=== PATIENT | male | born 1945 | race Caucasian/White ===

== ENCOUNTER 2017-06-04 20:31 | Emergency (ER) | payer MEDICARE, OTHER ==
[2017-06-04] MEDS ORDERED: Sodium Chloride 0.9% 500 ML IV ONE (21:11)
[2017-06-04] MEDS ORDERED: Sodium Chloride 0.9% 10 ML Syringe FLUSH PRN (21:11)
[2017-06-04] MEDS ORDERED: HYDROmorphone 0.5 MG/0.5 ML Syringe IVPUSH ONE (21:28)
--- NOTE | 2017-06-04 22:11 | EDM.PDOC ---
ED HPI GENERAL MEDICAL PROBLEM - General Chief Complaint: Genitourinary Problem Stated Complaint: BLOOD IN URINE Time Seen by Provider: 06/04/17 20:49 Source of Information: Reports: Patient, RN Notes Reviewed - History of Present Illness INITIAL COMMENTS - FREE TEXT/NARRATIVE: 71-year-old male comes in with fever chills hematuria. This All started just a few hours ago. He does have voiding dysuria with hematuria but had not been having prior dysuria or other voiding symptomatology. He does have history of hypertension, chronic atrial fib and is on xarelto that. No chest pain or difficulty breathing. No abdominal pain nausea or vomiting. No unusual back discomfort. He has never had difficulty of this nature before. - Related Data Allergies Allergy/AdvReac Type Severity Reaction Status Date / Time No Known Allergies Allergy Verified 06/04/17 20:43 Home Meds: Home Meds Diltiazem [Diltiazem XR] 180 mg PO DAILY 06/04/17 [History] Fenofibrate Nanocrystallized [Fenofibrate] 145 mg PO DAILY 06/04/17 [History] LORazepam 0.5 mg PO Q8H PRN 06/04/17 [History] Levofloxacin [Levaquin] 500 mg PO DAILY #7 tab 06/04/17 [Rx] Losartan [Cozaar] 100 mg PO DAILY 06/04/17 [History] Metoprolol Succinate 75 mg PO BID 06/04/17 [History] Multivitamin [Multivitamins] 1 each PO DAILY 06/04/17 [History] Potassium Chloride 10 meq PO ASDIRECTED 06/04/17 [History] Rivaroxaban [Xarelto] 20 mg PO DAILY 06/04/17 [History] Sertraline [Zoloft] 50 mg PO DAILY 06/04/17 [History] Triamterene/Hydrochlorothiazid [Triamterene-HCTZ 37.5-25 MG] 1 each PO DAILY [History] Ubidecarenone [Coq-10] 100 mg PO BID 06/04/17 [History] atorvaSTATin [Lipitor] 20 mg PO BEDTIME 06/04/17 [History] Past Medical History HEENT History: Reports: Impaired Vision Social & Family History - Tobacco Use Smoking Status *Q: Never Smoker Second Hand Smoke Exposure: No - Caffeine Use Caffeine Use: Reports: Coffee - Recreational Drug Use Recreational Drug Use: No ED ROS GENERAL - Review of Systems Review Of Systems: See Below Constitutional: Reports: Fever, Chills (Low-grade) HEENT: Denies: Sinus Problem, Throat Pain Respiratory: Reports: Shortness of Breath (Mild chronic). Denies: Cough Cardiovascular: Denies: Chest Pain GI/Abdominal: Denies: Abdominal Pain, Nausea, Vomiting : Reports: Dysuria, Hematuria Musculoskeletal: Denies: Back Pain, Leg Pain Skin: Denies: Bruising, Rash Neurological: Reports: No Symptoms ED EXAM, RENAL/ - Physical Exam Exam: See Below General Appearance: Alert, Anxious (Mild), Mild Distress Eye Exam: Bilateral Eye: PERRL Throat/Mouth: Normal Inspection, Normal Oropharynx Head: Atraumatic. No: Facial Swelling Neck: Supple, Full Range of Motion Respiratory/Chest: No Respiratory Distress, Lungs Clear, Normal Breath Sounds Cardiovascular: Irregularly Irregular GI/Abdominal: No: Non-Tender, Guarding, Rebound (Male) Exam: Normal Inspection Extremities: Normal Inspection, Pedal Edema (Mild bilateral). No: Leg Pain Neurological: Alert, Oriented, No Motor/Sensory Deficits Skin Exam: Warm, Dry, Normal Color Course - Vital Signs Last Recorded V/S: Last Vital Signs Temp 99.4 F 06/04/17 20:37 Pulse 97 06/04/17 20:37 Resp 20 06/04/17 20:37 BP 164/82 H 06/04/17 20:37 Pulse Ox 94 L 06/04/17 20:37 - Orders/Labs/Meds Orders: Active Orders 24 hr Category Date Time Status Peripheral IV Care [RC] . DIRECTED Care 06/04/17 21:12 Active CULTURE URINE [RM] Stat Lab 06/04/17 20:55 Received Sodium Chloride 0.9% [Saline Flush] Med 06/04/17 21:11 Active 10 ml FLUSH ASDIRECTED PRN Peripheral IV Insertion Adult [OM.PC] Stat Oth 06/04/17 21:11 Ordered Medication Orders Sodium Chloride (Saline Flush) 10 ml FLUSH ASDIRECTED PRN PRN Reason: Keep Vein Open Last Admin: 06/04/17 21:35 Dose: 10 ml Labs: Laboratory Tests 06/04/17 06/04/17 06/04/17 Range/Units 20:55 21:25 21:25 WBC 13.62 H (4.23-9.07) K/mm3 RBC 4.64 (4.63-6.08) M/mm3 Hgb 13.9 (13.7-17.5) gm/L Hct 40.9 (40.1-51.0) % MCV 88.1 (79.0-92.2) fl MCH 30.0 (25.7-32.2) pg MCHC 34.0 (32.2-35.5) g/dl RDW Std Deviation 44.8 H (35.1-43.9) fL Plt Count 179 (163-337) K/mm3 MPV 12.0 (9.4-12.3) fl Neut % (Auto) 84.6 H (34.0-67.9) % Lymph % (Auto) 6.2 L (21.8-53.1) % [place] % (Auto) 8.8 (5.3-12.2) % Eos % (Auto) 0.1 L (0.8-7.0) Baso % (Auto) 0.1 (0.1-1.2) % Neut # (Auto) 11.53 H (1.78-5.38) K/mm3 Lymph # (Auto) 0.84 L (1.32-3.57) K/mm3 [place] # (Auto) 1.20 H (0.30-0.82) K/mm3 Eos # (Auto) 0.01 L (0.04-0.54) K/mm3 Baso # (Auto) 0.01 (0.01-0.08) K/mm3 Manual Slide Review Normal smear Sodium 140 (136-145) mEq/L Potassium 2.8 L (3.5-5.1) mEq/L Chloride 102 (98-107) mEq/L Carbon Dioxide 25 (21-32) mEq/L Anion Gap 15.8 H (5-15) BUN 14 (7-18) mg/dL Creatinine 1.2 (0.7-1.3) mg/dL Est Cr Clr Drug Dosing 60.18 mL/min Estimated GFR (MDRD) 59 (>60) mL/min BUN/Creatinine Ratio 11.7 L (14-18) Glucose 151 H (83-115) mg/dL Calcium 9.4 (8.5-10.1) mg/dL Total Bilirubin 0.4 (0.2-1.0) mg/dL AST 32 (15-37) U/L ALT 32 (16-63) U/L Alkaline Phosphatase 62 (46-116) U/L Total Protein 7.2 (6.4-8.2) g/dl Albumin 3.8 (3.4-5.0) g/dl Globulin 3.4 gm/dL Albumin/Globulin Ratio 1.1 (1-2) Urine Color Red H (Yellow) Urine Appearance Slt cloudy H (Clear) Urine pH 7.0 (5.0-8.0) Ur Specific [place] 1.020 (1.005-1.030) Urine Protein 3+ H (Negative) Urine Glucose (UA) Negative (Negative) Urine Ketones 1+ H (Negative) Urine Occult Blood 3+ H (Negative) Urine Nitrite Positive H (Negative) Urine Bilirubin 3+ H (Negative) Urine Urobilinogen 2.0 H (0.2-1.0) Ur Leukocyte Esterase 3+ H (Negative) Urine RBC 0-5 (0-5) /hpf Urine WBC 10-20 H (0-5) /hpf Ur Epithelial Cells 0-5 (0-5) /hpf Amorphous Sediment Few H (NOT SEEN) /hpf Urine Bacteria Many H (FEW) /hpf Urine Mucus Few (FEW) /hpf Meds: Medications Generic Name Dose Route Start Last Admin Trade Name Dona PRN Reason Stop Dose Admin Sodium Chloride 10 ml 06/04/17 21:11 06/04/17 21:35 Saline Flush FLUSH 10 ml ASDIRECTED PRN Administration Keep Vein Open Discontinued Medications Generic Name Dose Route Start Last Admin Trade Name Dona PRN Reason Stop Dose Admin Hydromorphone HCl 0.5 mg 06/04/17 21:28 06/04/17 21:34 Dilaudid IVPUSH 06/04/17 21:29 0.5 mg ONETIME ONE Administration Sodium Chloride 500 mls @ 999 mls/hr 06/04/17 21:11 06/04/17 21:33 Normal Saline IV 06/04/17 21:41 999 mls/hr .BOLUS ONE Administration Ceftriaxone Sodium 1 gm/ 100 mls @ 200 mls/hr 06/04/17 22:22 06/04/17 22:34 Sodium Chloride IV 06/04/17 22:51 200 mls/hr ONETIME ONE Administration Sodium Chloride 400 mls @ 999 mls/hr 06/04/17 22:31 Normal Saline IV 06/04/17 22:55 .BOLUS ONE Levofloxacin 500 mg 06/04/17 22:22 06/04/17 22:35 Levaquin PO 06/04/17 22:23 500 mg ONETIME ONE Administration Potassium Chloride 40 meq 06/04/17 22:21 06/04/17 22:35 Klor-Con M20 PO 06/04/17 22:22 40 meq ONETIME ONE Administration - Re-Assessments/Exams Free Text/Narrative Re-Assessment/Exam: 06/04/17 23:05 UA shows strong evidence for UTI, nitrite positive, increased white cells and bacteria present. Potassium low at 2.8. He is on Potassium supplement. He states he has been taking his meds as prescribed. Have ordered urine culture. Have given Rocephin 1 g IV and Levaquin 500 mg by mouth. We'll continue him on Levaquin 500 milligrams daily. Discharge instructions as documented. Departure - Departure Time of Disposition: 23:07 Disposition: Home, Self-Care 01 Condition: Fair Clinical Impression: UTI, Urinary tract infectious disease, Hematuria due to cystitis, Hypokalemia - Discharge Information Prescriptions: Levofloxacin [Levaquin] 500 mg PO DAILY #7 tab Instructions: Urinary Tract Infection, Adult, [id number], Hematuria, Adult Referrals: Ric Fields MD [Primary Care Provider] - Forms: ED Department Discharge Additional Instructions: Drink plenty of water to maintain hydration, do not take the xarelto tomorrow, than resume as previously prescribed. You've been given Rocephin antibiotic 1 g IV while here in the ED and also Levaquin 500 mg orally. Continue Levaquin 500 mg orally for the next 7 days. During next dose of Levaquin should be tomorrow afternoon. Your potassium was very low at 2.8 this evening. Increase your potassium supplement to 1 tablet twice daily. Bananas are good source of potassium. Also other fruit and vegetables. Potatoes are good source of potassium but too many carbohydrates in general are unhealthy for you. [place] fries in particular are very unhealthy and also giving you way too many calories. Be very careful of other flour and sugar foods. The blood in the urine you have this evening should gradually clear over the next 1-2 days. Try follow-up with Dr. Fields or Saturday if at all possible. Call tomorrow morning for appointment. A urine culture has been done. Culture results should be available within 24-48 hours. Return to ED as needed if symptoms worsening in any way. - My Orders Last 24 Hours: My Active Orders 06/04/17 20:55 CULTURE URINE [RM] Stat 06/04/17 21:11 Sodium Chloride 0.9% [Saline Flush] 10 ml FLUSH ASDIRECTED PRN Peripheral IV Insertion Adult [OM.PC] Stat 06/04/17 21:12 Peripheral IV Care [RC] . DIRECTED - Assessment/Plan Last 24 Hours: My Active Orders 06/04/17 20:55 CULTURE URINE [RM] Stat 06/04/17 21:11 Sodium Chloride 0.9% [Saline Flush] 10 ml FLUSH ASDIRECTED PRN Peripheral IV Insertion Adult [OM.PC] Stat 06/04/17 21:12 Peripheral IV Care [RC] . DIRECTED
[2017-06-04] MEDS ORDERED: Potassium Chloride 20 MEQ Tab.ER PO ONE (22:21)
[2017-06-04] MEDS ORDERED: cefTRIAXone 1 GM in Sodium Chloride 0.9% 100 ML IV ONE (22:22)
[2017-06-04] MEDS ORDERED: Levofloxacin 250 MG Tab PO ONE (22:22)
[2017-06-04] MEDS ORDERED: Sodium Chloride 0.9% 400 ML IV ONE (22:31)
== END 2017-06-04 23:40 | disposition home or self-care (01) ==
LOC: JD.ED 20:31
DX: N30.01 Acute cystitis with hematuria (principal); E87.6 Hypokalemia; I10 Essential (primary) hypertension; I48.2 Chronic atrial fibrillation; Z79.899 Other long term (current) drug therapy; Z79.01 Long term (current) use of anticoagulants
CPT/HCPCS: 36415; 80053; 81001; 85025; 87086; 87088; 87186; 96361; 96365; 96375; 99284; A9270; J0696; J1170; J7030; J7040; J7050; 99283

== ENCOUNTER 2019-08-06 07:53 | Day surgery (SDC) | payer MEDICARE, OTHER ==
--- NOTE | 2019-08-06 08:19 | PCM.PREANE ---
Preanesthetic Assessment - Procedure Proposed Procedure: cataract - Anesthesia/Transfusion/Family Hx Anesthesia History: Prior Anesthesia Without Reaction Family History of Anesthesia Reaction: No Transfusion History: Prior Transfusion Without Reaction () - Review of Systems General: No Symptoms ( ) Pulmonary: No Symptoms ( ) Cardiovascular: No Symptoms, Dyspnea on Exertion, Other (afib- xarelto and high bp) Gastrointestinal: No Symptoms Neurological: No Symptoms Other: Reports: Anxiety - Physical Assessment NPO Status Date: 08/05/19 NPO Status Time: 19:00 Vital Signs: 155/73 81 96% 16 97.3 Height: 5 ft 10 in Weight: 113.398 kg ASA Class: 3 Mental Status: Alert & Oriented x3 Airway Class: Mallampati = 2 Dentition: Reports: Broken Tooth/Teeth, Missing Tooth/Teeth Thyro-Mental Finger Breadths: 3 Mouth Opening Finger Breadths: 3 ROM/Head Extension: Full Lungs: Clear to Auscultation, Normal Respiratory Effort Cardiovascular: Regular Rate, Regular Rhythm - Allergies Allergies/Adverse Reactions: Allergies Allergy/AdvReac Type Severity Reaction Status Date / Time No Known Allergies Allergy Verified 06/04/17 20:43 - Blood Blood Available: No - Anesthesia Plan Beta Jose Eduardo: Metoprolol Med Last Dose Date: 08/06/19 Med Last Dose Time: 06:30 - Acknowledgements Anesthesia Type Planned: MAC Pt an Appropriate Candidate for the Planned Anesthesia: Yes Alternatives and Risks of Anesthesia Discussed w Pt/Guardian: Yes Pt/Guardian Understands and Agrees with Anesthesia Plan: Yes PreAnesthesia Questionnaire HEENT History: Reports: Impaired Vision Cardiovascular History: Reports: High Cholesterol, Hypertension Respiratory History: Reports: None Musculoskeletal History: Reports: Arthritis Psychiatric History: Reports: Anxiety Endocrine/Metabolic History: Reports: Obesity/BMI 30+ Oncologic (Cancer) History: Reports: Other (See Below) (skin) - Past Surgical History Musculoskeletal Surgical History: Reports: Other (See Below) (multiple bone fracture [id number] to accident 1970) - SUBSTANCE USE Smoking Status *Q: Former Smoker Tobacco Use Within Last Twelve Months: No Second Hand Smoke Exposure: No Days Per Week of Alcohol Use: 0 Recreational Drug Use History: No - HOME MEDS Home Medications: Home Meds Diltiazem [Diltiazem XR] 180 mg PO DAILY 06/04/17 [History] Fenofibrate Nanocrystallized [Fenofibrate] 145 mg PO DAILY 06/04/17 [History] LORazepam 0.5 mg PO Q8H PRN 06/04/17 [History] Losartan [Cozaar] 100 mg PO DAILY 06/04/17 [History] Multivitamin [Multivitamins] 1 each PO DAILY 06/04/17 [History] Potassium Chloride 10 meq PO DAILY 06/04/17 [History] Rivaroxaban [Xarelto] 20 mg PO DAILY 06/04/17 [History] Sertraline [Zoloft] 50 mg PO DAILY 06/04/17 [History] Triamterene/Hydrochlorothiazid [Triamterene-HCTZ 37.5-25 MG] 1 each PO DAILY [History] Ubidecarenone [Coq-10] 100 mg PO DAILY 06/04/17 [History] Metoprolol Tartrate [Lopressor] 75 mg PO BID 08/05/19 [History] - CURRENT (IN HOUSE) MEDS Current Meds: Current Medications Brimonidine Tartrate (Alphagan 0.2% Ophth Soln) 0 ml EYELF ASDIRECTED NANCY Stop: 08/06/19 23:00 Cefuroxime Sodium (Zinacef) 0 mg EYELF ASDIRECTED NANCY Stop: 08/06/19 23:00 Lidocaine HCl (Xylocaine-Mpf 1%) 0 ml INJECT ASDIRECTED NANCY Stop: 08/06/19 23:00 Phenylephrine HCl (Chacho-Synephrine 2.5% Ophth Soln) 0 ml EYELF ASDIRECTED NANCY Stop: 08/06/19 23:00 Pilocarpine HCl (Pilocar 4% Ophth Soln) 0 ml EYELF ASDIRECTED NANCY Stop: 08/06/19 23:00 Polymyxin/Trimethoprim Sulfate (Polytrim Ophth Soln) 0 ml EYELF ASDIRECTED NANCY Stop: 08/06/19 23:00 Tetracaine HCl (Tetracaine 0.5% Steri-Unit Shari) 0 ml EYEBOTH ASDIRECTED NANCY Stop: 08/06/19 23:00 Tropicamide (Mydriacyl 1% Ophth Soln) 0 ml EYELF ASDIRECTED NANCY Stop: 08/06/19 23:00
[2019-08-06] MEDS: Polymyxin B/Trimethoprim 10 ML Bottle EYELF SCH ×4 (08:32→10:30)
[2019-08-06] MEDS: Brimonidine 0.2% Ophth Soln 5 ML Bottle EYELF SCH ×4 (08:38→10:30)
[2019-08-06] MEDS: Phenylephrine 2.5% Ophth Soln 2 ML Bot EYELF SCH ×6 (08:42→10:12)
[2019-08-06] MEDS: Tropicamide 1% Ophth Soln 15 ML Bottle EYELF SCH ×4 (08:47→09:36)
[2019-08-06] MEDS: Tetracaine HCl/PF 0.5% 4 ML Bottle EYEBOTH SCH ×3 (10:00→10:18)
[2019-08-06] MEDS: Lidocaine 1% PF 2 ML SDV INJECT SCH ×2 (10:00→10:18)
[2019-08-06] MEDS: Pilocarpine 4% Ophth Soln 15 ML Bot EYELF SCH ×2 (10:01→10:30)
[2019-08-06] MEDS: Cefuroxime 10 MG/ML SYRINGE EYELF SCH ×2 (10:01→10:30)
--- NOTE | 2019-08-06 10:38 | PCM48HPAN ---
Post Anesthesia Note - EVALUATION WITHIN 48HRS OF ANESTHETIC Vital Signs in Normal Range: Yes Patient Participated in Evaluation: Yes Respiratory Function Stable: Yes Airway Patent: Yes Cardiovascular Function Stable: Yes Hydration Status Stable: Yes Pain Control Satisfactory: Yes Nausea and Vomiting Control Satisfactory: Yes Mental Status Recovered: Yes Vital Signs: Last Vital Signs Temp 36.3 C 08/06/19 08:05 Pulse 81 08/06/19 08:05 Resp 16 08/06/19 08:05 BP 155/73 H 08/06/19 08:05 Pulse Ox 96 08/06/19 08:05
== END 2019-08-06 10:50 | disposition home or self-care (01) ==
LOC: JD.SDS 07:53
PROVIDERS: ATTEND Ophthalmology
DX: E11.36 Type 2 diabetes mellitus with diabetic cataract (principal); H25.813 Combined forms of age-related cataract, bilateral; H16.223 Keratoconjunctivitis sicca, not specified as Sjogren's, bilateral; F41.9 Anxiety disorder, unspecified; M19.90 Unspecified osteoarthritis, unspecified site; I10 Essential (primary) hypertension; H43.813 Vitreous degeneration, bilateral; H02.831 Dermatochalasis of right upper eyelid; H02.834 Dermatochalasis of left upper eyelid; Z79.899 Other long term (current) drug therapy; Z79.01 Long term (current) use of anticoagulants
CPT/HCPCS: 66984; C1780; J0697; J2001

== ENCOUNTER 2019-10-08 07:39 | Day surgery (SDC) | payer MEDICARE, OTHER ==
--- NOTE | 2019-10-08 07:49 | PCM.PREANE ---
Preanesthetic Assessment - Anesthesia/Transfusion/Family Hx Anesthesia History: Prior Anesthesia Without Reaction Family History of Anesthesia Reaction: No Transfusion History: Prior Transfusion Without Reaction () - Review of Systems General: No Symptoms Pulmonary: No Symptoms Cardiovascular: No Symptoms Gastrointestinal: No Symptoms Neurological: No Symptoms Other: Reports: None - Physical Assessment NPO Status Date: 10/07/19 NPO Status Time: 20:00 ASA Class: 2 Mental Status: Alert & Oriented x3 Airway Class: Mallampati = 2 Dentition: Reports: Normal Dentition, Missing Tooth/Teeth Thyro-Mental Finger Breadths: 3 Mouth Opening Finger Breadths: 3 ROM/Head Extension: Full Lungs: Clear to Auscultation, Normal Respiratory Effort Cardiovascular: Regular Rate, Regular Rhythm - Allergies Allergies/Adverse Reactions: Allergies Allergy/AdvReac Type Severity Reaction Status Date / Time No Known Allergies Allergy Verified 10/07/19 20:45 - Anesthesia Plan Beta Jose Eduardo: Metoprolol Med Last Dose Date: 10/07/19 Med Last Dose Time: 20:00 - Acknowledgements Anesthesia Type Planned: MAC Pt an Appropriate Candidate for the Planned Anesthesia: Yes Alternatives and Risks of Anesthesia Discussed w Pt/Guardian: Yes Pt/Guardian Understands and Agrees with Anesthesia Plan: Yes PreAnesthesia Questionnaire HEENT History: Reports: Cataract, Impaired Vision Cardiovascular History: Reports: High Cholesterol, Hypertension Respiratory History: Reports: None Gastrointestinal History: Reports: None Genitourinary History: Reports: Renal Calculus Musculoskeletal History: Reports: Arthritis (uses cane) Psychiatric History: Reports: Anxiety Endocrine/Metabolic History: Reports: Obesity/BMI 30+ Oncologic (Cancer) History: Reports: Other (See Below) (skin) - Past Surgical History HEENT Surgical History: Reports: Cataract Surgery Musculoskeletal Surgical History: Reports: Other (See Below) (multiple bone fracture [id number] to accident 1970) - SUBSTANCE USE Smoking Status *Q: Never Smoker - HOME MEDS Home Medications: Home Meds Diltiazem [Diltiazem XR] 180 mg PO DAILY 06/04/17 [History] Fenofibrate Nanocrystallized [Fenofibrate] 145 mg PO DAILY 06/04/17 [History] LORazepam 0.5 mg PO Q8H PRN 06/04/17 [History] Losartan [Cozaar] 100 mg PO DAILY 06/04/17 [History] Multivitamin [Multivitamins] 1 each PO DAILY 06/04/17 [History] Potassium Chloride 10 meq PO DAILY 06/04/17 [History] Rivaroxaban [Xarelto] 20 mg PO DAILY 06/04/17 [History] Sertraline [Zoloft] 50 mg PO DAILY 06/04/17 [History] Triamterene/Hydrochlorothiazid [Triamterene-HCTZ 37.5-25 MG] 1 each PO DAILY [History] Ubidecarenone [Coq-10] 100 mg PO DAILY 06/04/17 [History] Metoprolol Tartrate [Lopressor] 75 mg PO BID 08/05/19 [History] Tamsulosin [Flomax] 0.4 mg PO DAILY 10/07/19 [History] atorvaSTATin Calcium [Lipitor] 20 mg PO DAILY 10/07/19 [History] - CURRENT (IN HOUSE) MEDS Current Meds: Current Medications Brimonidine Tartrate (Alphagan 0.2% Oph Soln) 0 ml EYERT ASDIRECTED NANCY Stop: 10/08/19 18:00 Cefuroxime Sodium (Zinacef) 0 mg EYERT ASDIRECTED NANCY Stop: 10/08/19 18:00 Lidocaine HCl (Xylocaine-Mpf 1%) 0 ml INJECT ASDIRECTED NANCY Stop: 10/08/19 18:00 Phenylephrine HCl ([place]-Synephrine 2.5% Oph Soln) 0 ml EYERT ASDIRECTED NANCY Stop: 10/08/19 18:00 [place] HCl (Pilocar 4% Oph Soln) 0 ml EYERT ASDIRECTED NANCY Stop: 10/08/19 18:00 Polymyxin/Trimethoprim Sulfate (Polytrim Ophth Soln) 0 ml EYERT ASDIRECTED NANCY Stop: 10/08/19 18:00 Tetracaine HCl (Tetracaine 0.5% Steri-Unit Shari) 0 ml EYEBOTH ASDIRECTED NANCY Stop: 10/08/19 18:00 Tropicamide (Mydriacyl 1% Oph Soln) 0 ml EYERT ASDIRECTED NANCY Stop: 10/08/19 16:00
[2019-10-08] MEDS: Polymyxin B/Trimethoprim 10 ML Bottle EYERT SCH ×4 (07:54→09:45)
[2019-10-08] MEDS: Brimonidine 0.2% Ophth Soln 5 ML Bottle EYERT SCH ×4 (08:01→09:45)
[2019-10-08] MEDS: Phenylephrine 2.5% Ophth Soln 2 ML Bot EYERT SCH ×6 (08:07→09:27)
[2019-10-08] MEDS: Lidocaine 1% PF 2 ML SDV INJECT SCH ×2 (08:12→09:34)
[2019-10-08] MEDS: Tetracaine HCl/PF 0.5% 4 ML Bottle EYEBOTH SCH ×3 (08:12→09:34)
[2019-10-08] MEDS: Cefuroxime 10 MG/ML SYRINGE EYERT SCH ×2 (08:12→09:44)
[2019-10-08] MEDS: Pilocarpine 4% Ophth Soln 15 ML Bot EYERT SCH ×2 (08:13→09:45)
[2019-10-08] MEDS: Tropicamide 1% Ophth Soln 15 ML Bottle EYERT SCH ×4 (08:18→09:15)
--- NOTE | 2019-10-08 09:40 | PCM48HPAN ---
Post Anesthesia Note - EVALUATION WITHIN 48HRS OF ANESTHETIC Vital Signs in Normal Range: Yes Patient Participated in Evaluation: Yes Respiratory Function Stable: Yes Airway Patent: Yes Cardiovascular Function Stable: Yes Hydration Status Stable: Yes Pain Control Satisfactory: Yes Nausea and Vomiting Control Satisfactory: Yes Mental Status Recovered: Yes Vital Signs: Last Vital Signs Temp 36.3 C 10/08/19 07:30 Pulse 64 10/08/19 07:30 Resp 20 10/08/19 07:30 BP 128/63 10/08/19 07:30 Pulse Ox 95 10/08/19 07:30
== END 2019-10-08 09:56 | disposition home or self-care (01) ==
LOC: JD.SDS 07:39
PROVIDERS: ATTEND Ophthalmology
DX: E11.36 Type 2 diabetes mellitus with diabetic cataract (principal); H25.811 Combined forms of age-related cataract, right eye; F41.9 Anxiety disorder, unspecified; E78.00 Pure hypercholesterolemia, unspecified; I10 Essential (primary) hypertension; E66.9 Obesity, unspecified; Z79.899 Other long term (current) drug therapy; Z98.42 Cataract extraction status, left eye; Z96.1 Presence of intraocular lens; Z68.33 Body mass index [BMI] 33.0-33.9, adult
CPT/HCPCS: 66984; C1780; J0697; J2001

== ENCOUNTER 2021-01-13 18:34 | Emergency (ER) | payer MEDICARE, OTHER ==
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
== END 2021-01-13 20:20 | disposition home or self-care (01) ==
LOC: JD.ED 18:34
DX: T83.038A Leakage of other urinary catheter, initial encounter (principal); E78.00 Pure hypercholesterolemia, unspecified; I10 Essential (primary) hypertension; N40.1 Benign prostatic hyperplasia with lower urinary tract symptoms; R33.8 Other retention of urine; M19.90 Unspecified osteoarthritis, unspecified site; E66.9 Obesity, unspecified; Z68.33 Body mass index [BMI] 33.0-33.9, adult; Z79.01 Long term (current) use of anticoagulants; Z79.899 Other long term (current) drug therapy
CPT/HCPCS: 99283

== ENCOUNTER 2021-02-05 14:35 | Emergency (ER) | payer MEDICARE, OTHER ==
--- NOTE | 2021-02-05 15:18 | EDM.PDOC ---
ED HPI GENERAL MEDICAL PROBLEM - General Chief Complaint: Genitourinary Problem Stated Complaint: CATHETER ISSUES Time Seen by Provider: 02/05/21 15:11 - History of Present Illness INITIAL COMMENTS - FREE TEXT/NARRATIVE: 75-year-old male presents the emergency room with a dysfunctional urinary catheter. He was drained this morning however the catheter has not worked correctly since that time. The patient has been seen here in the past where has been using his daytime bag and rather than his night bag leading to obstruction of the catheter at night. Patient denies any pain elsewhere other than in the suprapubic area he has had no fevers or chills or other problems.. Bladder Pain Score (Numeric/FACES): 6 - Related Data Allergies Allergy/AdvReac Type Severity Reaction Status Date / Time No Known Allergies Allergy Verified 10/07/19 20:45 Home Meds: Home Meds Diltiazem [Diltiazem XR] 180 mg PO DAILY 06/04/17 [History] Fenofibrate Nanocrystallized [Fenofibrate] 145 mg PO DAILY 06/04/17 [History] LORazepam 0.5 mg PO Q8H PRN 06/04/17 [History] Losartan [Cozaar] 100 mg PO DAILY 06/04/17 [History] Multivitamin [Multivitamins] 1 each PO DAILY 06/04/17 [History] Potassium Chloride 10 meq PO DAILY 06/04/17 [History] Rivaroxaban [Xarelto] 20 mg PO DAILY 06/04/17 [History] Sertraline [Zoloft] 50 mg PO DAILY 06/04/17 [History] Triamterene/Hydrochlorothiazid [Triamterene-HCTZ 37.5-25 MG] 1 each PO DAILY 06/04/17 [History] Ubidecarenone [Coq-10] 100 mg PO DAILY 06/04/17 [History] Metoprolol Tartrate [Lopressor] 75 mg PO BID 08/05/19 [History] Tamsulosin [Flomax] 0.4 mg PO DAILY 10/07/19 [History] atorvaSTATin Calcium [Lipitor] 20 mg PO DAILY 10/07/19 [History] Past Medical History HEENT History: Reports: Impaired Vision Cardiovascular History: Reports: Afib, High Cholesterol, Hypertension Respiratory History: Reports: None Gastrointestinal History: Reports: None Genitourinary History: Reports: BPH, Renal Calculus, Retention, Urinary Musculoskeletal History: Reports: Fracture, Osteoarthritis Psychiatric History: Reports: Anxiety, Depression Endocrine/Metabolic History: Reports: Obesity/BMI 30+ Oncologic (Cancer) History: Reports: Other (See Below) - Past Surgical History HEENT Surgical History: Reports: Cataract Surgery, Oral Surgery Musculoskeletal Surgical History: Reports: ORIF Social & Family History - Tobacco Use Tobacco Use Status *Q: Never Tobacco User - Caffeine Use Caffeine Use: Reports: None - Recreational Drug Use Recreational Drug Use: No - Living Situation & Occupation Living situation: Reports: , with Spouse Occupation: Retired ED ROS GENERAL - Review of Systems Review Of Systems: See Below Constitutional: Reports: No Symptoms HEENT: Reports: No Symptoms Respiratory: Reports: No Symptoms Cardiovascular: Reports: No Symptoms GI/Abdominal: Reports: Abdominal Pain (In the vicinity of the bladder). Denies: Constipation, Diarrhea, Nausea, Vomiting : Reports: Urinary Retention. Denies: Dysuria, Flank Pain ED EXAM, GENERAL - Physical Exam Exam: See Below Exam Limited By: No Limitations General Appearance: Alert, No Apparent Distress Head: Atraumatic, Normocephalic Neck: Normal Inspection, Supple, Non-Tender, Full Range of Motion. No: Lymphadenopathy (L), Lymphadenopathy (R) Respiratory/Chest: No Respiratory Distress, Lungs Clear, Normal Breath Sounds Cardiovascular: Regular Rate, Rhythm, No Edema, No Murmur GI/Abdominal: Normal Bowel Sounds, Soft, Other (Mild discomfort around the urinary bladder otherwise abdominal exam is normal). No: Guarding, Rigid, Rebound Back Exam: Normal Inspection. No: CVA Tenderness (L), CVA Tenderness (R) Extremities: Normal Inspection, No Pedal Edema Course - Vital Signs Last Recorded V/S: Last Vital Signs Temp 37.2 C 02/05/21 15:05 Pulse 90 02/05/21 15:05 Resp 20 02/05/21 15:05 BP 186/94 H 02/05/21 15:05 Pulse Ox 97 02/05/21 15:05 - Re-Assessments/Exams Free Text/Narrative Re-Assessment/Exam: 02/05/21 15:58 She had over 500 cc residual the Woody was changed and he feels much better at this time. Departure - Departure Time of Disposition: 15:58 Disposition: Home, Self-Care 01 Clinical Impression: Obstructed Woody catheter - Discharge Information Referrals: Ric Fields MD [Primary Care Provider] - Forms: ED Department Discharge Additional Instructions: Return to the emergency room with any questions problems or worsening symptoms. You have a new catheter in place be sure and use the large bag at night. Sepsis Event Note (ED) - Focused Exam Vital Signs: Vital Signs Temp Pulse Resp BP Pulse Ox 02/05/21 15:05 37.2 C 90 20 186/94 H 97
== END 2021-02-05 16:10 | disposition home or self-care (01) ==
LOC: JD.ED 14:35
DX: T83.091A Other mechanical complication of indwelling urethral catheter, initial encounter (principal); I10 Essential (primary) hypertension; E78.00 Pure hypercholesterolemia, unspecified; Z79.899 Other long term (current) drug therapy
CPT/HCPCS: 51702; 99282; 99283-25

== ENCOUNTER 2021-11-13 12:24 | Emergency (ER) | payer MEDICARE, OTHER ==
[2021-11-13] MEDS ORDERED: LORazepam 1 MG Tab PO ONE (13:32)
[2021-11-13 14:38] LABS: ESTIMATED GFR 47 mL/min (>60)
[2021-11-14] MEDS ORDERED: Cefdinir 300 MG Cap PO ONE (07:55)
[2021-11-14] MEDS ORDERED: Potassium Chloride 20 MEQ Tab.ER PO ONE (08:38)
== END 2021-11-14 12:35 ==
LOC: JD.ED 12:24
DX: F03.90 Unspecified dementia, unspecified severity, without behavioral disturbance, psychotic disturbance, mood disturbance, and anxiety (principal); F32.A Depression, unspecified; R45.1 Restlessness and agitation; N39.0 Urinary tract infection, site not specified; I10 Essential (primary) hypertension; I48.91 Unspecified atrial fibrillation; E66.9 Obesity, unspecified; Z79.899 Other long term (current) drug therapy; Z20.822 Contact with and (suspected) exposure to COVID-19
CPT/HCPCS: 36415; 70450; 80053; 80306; 80307; 81001; 84443; 85025; 87086; 99285; A9270; U0002